=== PATIENT | male | born 1990 | race African-American/Black ===

== ENCOUNTER 2017-09-17 15:47 | Emergency (ER) | payer SELFPAY | END 2017-09-17 17:55 | disposition left against medical advice (07) | LOC: ER 15:47 | DX: M54.2 Cervicalgia (principal); Z53.21 Procedure and treatment not carried out due to patient leaving prior to being seen by health care provider ==

== ENCOUNTER 2017-09-18 06:52 | Emergency (ER) | payer MEDICAID ==
[~2017-09-18] VITALS: Ht 185.4 cm; Wt 127.0 kg
[2017-09-18 10:41] VITALS: BP 137/86
[2017-09-18] MEDS: KETOROLAC 60MG/2ML VIAL IM ONE (10:41)
== END 2017-09-18 10:45 | disposition home or self-care (01) ==
LOC: ER 07:20
DX: S46.811A Strain of other muscles, fascia and tendons at shoulder and upper arm level, right arm, initial encounter (principal); M54.5 Low back pain; F12.10 Cannabis abuse, uncomplicated; V89.2XXA Person injured in unspecified motor-vehicle accident, traffic, initial encounter; Y93.89 Activity, other specified; Y92.89 Other specified places as the place of occurrence of the external cause; Y99.8 Other external cause status
CPT/HCPCS: 96372; 99283; J1885

== ENCOUNTER 2019-07-18 12:17 | Emergency (ER) | payer MEDICAID ==
[~2019-07-18] VITALS: Ht 185.4 cm; Wt 118.0 kg
[2019-07-18] MEDS ORDERED: IBUPROFEN 800MG TABLET PO ONE (13:45)
[2019-07-18 16:00] VITALS: BP 130/79
== END 2019-07-18 17:24 | disposition home or self-care (01) ==
LOC: ER 12:23
DX: S62.302A Unspecified fracture of third metacarpal bone, right hand, initial encounter for closed fracture (principal); F12.10 Cannabis abuse, uncomplicated; W22.8XXA Striking against or struck by other objects, initial encounter; Y93.89 Activity, other specified; Y92.89 Other specified places as the place of occurrence of the external cause; Y99.8 Other external cause status
CPT/HCPCS: 73130; 99283